=== PATIENT | male | born 1995 | race Caucasian/White ===

== ENCOUNTER 2016-08-28 01:20 | Emergency (ER) | payer BC, OTHER ==
[~2016-08-28] VITALS: Ht 172.7 cm; Wt 69.4 kg
[~2016-08-28 01:20] MED LIST: ABILIFY10 MG PO; ALBUTEROL17 GM IH; AMBIEN10 MG PO; ATIVAN0.5 M1 PO; DOXYCYCLINE HY100 M3 PO; FLUOXETINE HCL20 MG PO; IBUPROFEN400 MG PO; LANTUS 3 M100 UNITS1 SQ; LANTUS100 UNIT/1 SQ; NICOTINE PATCH1 EAC2 TD; NOVOLOG 10100 UNITS/ SC; NOVOLOG100 UNIT/1 SQ; VENTOLIN HFA18 GM IH; ZOLOFT50 M1 PO
[2016-08-28 01:37] LABS: HEMATOCRIT 46.1 % (38.0-50.0); MCH 31.3 PG (29.0-34.0); MCV 86.8 FL (86-99); MEAN PLAT.VOLUME 9.1 uM^3 (9.0-12.4); PLATELET COUNT 345 K/uL (156-360); RBC DIS.WIDTH-CV 12.1 % (11.8-14.6); RBC DIS.WIDTH-SD 38.4 % (39-53); RED BLOOD COUNT 5.31 M/uL (4.00-5.50)
[2016-08-28 01:39] LABS: POINT-OF-CARE METER ID UU13113778; POINT-OF-CARE USER ID NUTMMM10
[2016-08-28 01:48] LABS: CHLORIDE 102 mEq/L (99-109); POTASSIUM 3.4 mEq/L (3.7-5.4); SODIUM 138 mEq/L (136-147)
[2016-08-28 01:51] LABS: GLUCOSE 230 mg/dL (70-99)
[2016-08-28 01:52] LABS: ANION GAP 13 MEQ/L (2-14); TOTAL BILIRUBIN 0.8 mg/dL (0.0-1.0)
[2016-08-28 01:54] LABS: ALKALINE PHOSPHATASE 94 IU/L (3-129); GFR ESTIMATE (CALCULATED) > 59 mL/min/
[2016-08-28 01:55] LABS: UREA NITROGEN (BUN) 24 mg/dL (9-23)
[2016-08-28 02:26] LABS: CARBON DIOXIDE (BICARBONATE) 26.2 MEQ/L (20-31)
[2016-08-28 02:27] LABS: LIPASE 12 U/L (1.0-51.0)
[2016-08-28 04:51] LABS: POINT-OF-CARE METER ID UU13113702
[2016-08-28 04:55] LABS: ADD MIUA? NO; BILIRUBIN NEGATIVE; BLOOD NEGATIVE; COLOR YELLOW ((YELLOW)); GLUCOSE (STRIP) >=500; KETONES 20; LEUKOCYTES NEGATIVE; NITRITE NEGATIVE; PROTEIN (STRIP) NEGATIVE; SPECIFIC GRAVITY 1.021 (1.000-1.030); UCUL ADDED? NO; UROBILINOGEN 0.2 MG/DL (0.2-1.0)
[2016-08-28] MEDS ORDERED: ZOFRAN8 MG PO (05:20)
[2016-08-28 05:39] VITALS: BP 108/60
== END 2016-08-28 05:58 | disposition home or self-care (01) ==
LOC: EME 01:20
PROVIDERS: Emergency Medicine
DX: E11.65 Type 2 diabetes mellitus with hyperglycemia (principal); R10.9 Unspecified abdominal pain; R11.2 Nausea with vomiting, unspecified; Z79.4 Long term (current) use of insulin; F17.200 Nicotine dependence, unspecified, uncomplicated
CPT/HCPCS: 80053; 81003; 82803; 82948; 83690; 84100; 85027; 99281; 99284; J7030

== ENCOUNTER 2017-06-07 20:03 | Emergency (ER) | payer BC, OTHER ==
[~2017-06-07] VITALS: Ht 172.7 cm; Wt 70.0 kg
[~2017-06-07 20:03] MED LIST changes: +ZOFRAN8 MG PO
[2017-06-07 22:35] VITALS: BP 140/79
== END 2017-06-07 22:35 | disposition home or self-care (01) ==
LOC: EME 20:03
DX: S61.213A Laceration without foreign body of left middle finger without damage to nail, initial encounter (principal); W26.0XXA Contact with knife, initial encounter; Y99.0 Civilian activity done for income or pay; Z23 Encounter for immunization; E11.9 Type 2 diabetes mellitus without complications; Z79.4 Long term (current) use of insulin; F17.200 Nicotine dependence, unspecified, uncomplicated
CPT/HCPCS: 99281; 99283

== ENCOUNTER 2017-06-13 05:41 | Emergency (ER) | payer BC, OTHER ==
[~2017-06-13] VITALS: Ht 167.6 cm; Wt 71.4 kg
== END 2017-06-13 10:35 | disposition home or self-care (01) ==
LOC: EME 05:41
DX: M79.645 Pain in left finger(s) (principal); S61.213D Laceration without foreign body of left middle finger without damage to nail, subsequent encounter; W45.8XXD Other foreign body or object entering through skin, subsequent encounter; F17.210 Nicotine dependence, cigarettes, uncomplicated
CPT/HCPCS: 73140; 99281; 99285

== ENCOUNTER 2017-06-17 19:27 | Emergency (ER) | payer BC, OTHER ==
[~2017-06-17] VITALS: Ht 167.6 cm; Wt 68.8 kg
[2017-06-17] MEDS ORDERED: CLEOCIN300 MG PO (21:03)
[2017-06-17 21:16] VITALS: BP 152/98
== END 2017-06-17 21:18 | disposition home or self-care (01) ==
LOC: EME 19:27
DX: T81.33XA Disruption of traumatic injury wound repair, initial encounter (principal); L08.89 Other specified local infections of the skin and subcutaneous tissue; B95.61 Methicillin susceptible Staphylococcus aureus infection as the cause of diseases classified elsewhere; E11.9 Type 2 diabetes mellitus without complications; F17.210 Nicotine dependence, cigarettes, uncomplicated; Z79.4 Long term (current) use of insulin
CPT/HCPCS: 87070; 87075; 87077; 87147; 87186; 87205; 99281; 99284

== ENCOUNTER 2017-07-10 09:02 | Inpatient (IN) | payer BC, OTHER ==
[2017-07-10] VITALS (10 sets, daily range): BP systolic 102–136; BP diastolic 53–94
[~2017-07-10] VITALS: Ht 175.3 cm; Wt 71.2 kg
[~2017-07-10 09:02] MED LIST changes: +CLEOCIN300 MG PO
[2017-07-10] MEDS ORDERED: LEVEMIR FL100 UNIT/1 SC (09:24)
[2017-07-10 09:46] LABS: HEMATOCRIT 44.3 % (38.0-50.0); HEMOGLOBIN 15.3 G/DL (12.5-16.6); MCH 31.4 PG (29.0-34.0); MCHC 34.5 G/DL (30.0-36.0); PLATELET COUNT 282 K/uL (156-360); RBC DIS.WIDTH-CV 11.8 % (11.8-14.6); RBC DIS.WIDTH-SD 39.2 % (39-53); RED BLOOD COUNT 4.87 M/uL (4.00-5.50); WHITE BLOOD COUNT 8.7 K/uL (4.1-10.2)
[2017-07-10 09:50] LABS: APPEARANCE CLEAR ((CLEAR)); BILIRUBIN NEGATIVE; BLOOD NEGATIVE; COLOR STRAW ((YELLOW)); GLUCOSE (STRIP) >=500; KETONES 80; LEUKOCYTES NEGATIVE; NITRITE NEGATIVE; PROTEIN (STRIP) NEGATIVE; SPECIFIC GRAVITY 1.036 (1.000-1.030); UCUL ADDED? NO; UROBILINOGEN 0.2 MG/DL (0.2-1.0)
[2017-07-10 09:56] LABS: ALBUMIN 4.2 g/dL (3.2-4.8); CHLORIDE 97 mEq/L (99-109); POTASSIUM 4.3 mEq/L (3.7-5.4); SODIUM 130 mEq/L (136-147)
[2017-07-10 09:58] LABS: AMPHETAMINE NEGATIVE (500 ng/mL); BARBITURATES NEGATIVE (200 ng/mL); BENZODIAZEPINES NEGATIVE (150 ng/mL); BUPRENORPHINE NEGATIVE (10 ng/mL); COCAINE PRESUMPTIVE POSITIVE (150 ng/mL); METHADONE NEGATIVE (200 ng/mL); METHAMPHETAMINE NEGATIVE (500 ng/mL); OPIATES (MORPHINE) NEGATIVE (100 ng/mL); OXYCODONE NEGATIVE (100 ng/mL); PHENCYCLIDINE NEGATIVE (25 ng/mL); PROPOXYPHENE NEGATIVE (300 ng/mL); THC CANNABINOIDS PRESUMPTIVE POSITIVE (50 ng/mL); TRICYCLIC ANTIDEPRESSANTS NEGATIVE (300 ng/mL)
[2017-07-10 09:59] LABS: TOTAL PROTEIN 7.2 g/dL (6.4-8.3)
[2017-07-10 10:00] LABS: GLUCOSE 563 mg/dL (70-99); TOTAL BILIRUBIN 0.8 mg/dL (0.0-1.0)
[2017-07-10 10:01] LABS: SERUM ETHYL ALCOHOL < 10 mg/dL
[2017-07-10 10:02] LABS: ALKALINE PHOSPHATASE 61 IU/L (3-129); CREATININE 1.3 mg/dL (0.6-1.3); GFR ESTIMATE (CALCULATED) > 59 mL/min/ (58.99-99999)
[2017-07-10 10:03] LABS: UREA NITROGEN (BUN) 25 mg/dL (9-23)
[2017-07-10 10:04] LABS: AST (GOT) 14 IU/L (2-34)
[2017-07-10 10:05] LABS: ALT (GPT) 20 IU/L (3-49)
[2017-07-10 10:58] LABS: Estimated Average Glucose 286 mg/dL (70-123); HEMOGLOBIN A1c (GLYCOHEMOGLOB) 11.6 % HGB (Below 5.7)
[2017-07-10 11:02] LABS: BASE EXCESS -5.4 mEq/L (-3 to +3); CARBOXY HGB 3.9 % (0-5); COMMENTS - BLOOD GASES A+C+; FI02 0.21 %; METHEMOGLOBIN 0.8 % (0-1.5); PCO2 38 mm Hg (35-45); PO2 96 mm Hg (80-100); SITE RR; TOTAL RESP RATE 14 resp/min; pH 7.33 (7.35-7.45)
[2017-07-10 16:14] LABS: CHLORIDE 109 MEQ/L (99-109); POTASSIUM 3.7 MEQ/L (3.7-5.4)
[2017-07-10 16:19] LABS: PHOSPHORUS 2.9 mg/dL (2.5-4.9); UREA NITROGEN (BUN) 20 mg/dL (9-23)
[2017-07-10 16:25] LABS: CREATININE 0.8 MG/DL (0.6-1.3); GFR ESTIMATE (CALCULATED) > 59 mL/min/ (58.99-99999); GLUCOSE 167 mg/dL (70-99); SODIUM 138 MEQ/L (136-147)
[2017-07-10 20:26] LABS: CHLORIDE 106 MEQ/L (99-109); POTASSIUM 4.1 MEQ/L (3.7-5.4); SODIUM 138 MEQ/L (136-147)
[2017-07-10 20:32] LABS: CREATININE 1.1 MG/DL (0.6-1.3); GFR ESTIMATE (CALCULATED) > 59 mL/min/ (58.99-99999); GLUCOSE 178 mg/dL (70-99); PHOSPHORUS 3.2 mg/dL (2.5-4.9); UREA NITROGEN (BUN) 19 mg/dL (9-23)
[2017-07-11] VITALS (10 sets, daily range): BP systolic 112–150; BP diastolic 58–88
[2017-07-11 00:36] LABS: CHLORIDE 106 mEq/L (99-109); POTASSIUM 3.6 mEq/L (3.7-5.4); SODIUM 136 mEq/L (136-147)
[2017-07-11 00:38] LABS: GLUCOSE 199 mg/dL (70-99)
[2017-07-11 00:42] LABS: GFR ESTIMATE (CALCULATED) > 59 mL/min/ (58.99-99999); PHOSPHORUS 2.4 mg/dL (2.5-4.9)
[2017-07-11 00:43] LABS: UREA NITROGEN (BUN) 21 mg/dL (9-23)
[2017-07-11 05:31] LABS: CHLORIDE 107 mEq/L (99-109); POTASSIUM 3.7 mEq/L (3.7-5.4); SODIUM 140 mEq/L (136-147)
[2017-07-11 05:37] LABS: CREATININE 0.8 mg/dL (0.6-1.3); GFR ESTIMATE (CALCULATED) > 59 mL/min/ (58.99-99999)
[2017-07-11 05:38] LABS: UREA NITROGEN (BUN) 21 mg/dL (9-23)
[2017-07-11 05:41] LABS: GLUCOSE 72 mg/dL (70-99); PHOSPHORUS 3.7 mg/dL (2.5-4.9)
[2017-07-11 08:26] LABS: CHLORIDE 110 MEQ/L (99-109); POTASSIUM 3.9 MEQ/L (3.7-5.4); SODIUM 141 MEQ/L (136-147)
[2017-07-11 08:32] LABS: CREATININE 0.8 MG/DL (0.6-1.3); GFR ESTIMATE (CALCULATED) > 59 mL/min/ (58.99-99999); GLUCOSE 81 mg/dL (70-99); UREA NITROGEN (BUN) 22 mg/dL (9-23)
[2017-07-11 08:38] LABS: PHOSPHORUS 4.4 mg/dL (2.5-4.9)
[2017-07-11] MEDS ORDERED: ESCITALOPRAM OX10 MG PO (15:33)
== END 2017-07-11 15:54 | disposition home or self-care (01) | DRG 639 ==
LOC: EME 09:02 → 4WEST 12:25 → EDOF 12:25 → ENRESERV 12:30 → EDOF 12:36 → ENRESERV 12:52 → 4WEST 13:27 → ENRESERV 07-11 06:39 → 4WEST 07-11 15:54
PROVIDERS: Emergency Medicine; Internal Medicine Critical Care Medicine
DX: E10.10 Type 1 diabetes mellitus with ketoacidosis without coma (principal); F34.1 Dysthymic disorder; F14.10 Cocaine abuse, uncomplicated; F12.90 Cannabis use, unspecified, uncomplicated; S51.812A Laceration without foreign body of left forearm, initial encounter; S61.512A Laceration without foreign body of left wrist, initial encounter; X78.9XXA Intentional self-harm by unspecified sharp object, initial encounter; F90.9 Attention-deficit hyperactivity disorder, unspecified type; F41.8 Other specified anxiety disorders; F17.210 Nicotine dependence, cigarettes, uncomplicated; J45.909 Unspecified asthma, uncomplicated; Z91.19 Patient's noncompliance with other medical treatment and regimen; Z91.5 Personal history of self-harm; Z83.3 Family history of diabetes mellitus; Z81.8 Family history of other mental and behavioral disorders; Z79.899 Other long term (current) drug therapy; Z79.4 Long term (current) use of insulin
CPT/HCPCS: 36600; 80048; 80048 91; 80053; 81003; 82010; 82803; 82948; 83036; 84100; 84999; 85027; 87641; 99281; 99285; G0480; J1650; J1815; J7030; J7050

== ENCOUNTER 2017-09-09 22:31 | Emergency (ER) | payer BC, OTHER ==
[~2017-09-09] VITALS: Ht 167.6 cm; Wt 72.6 kg
[~2017-09-09 22:31] MED LIST changes: +ESCITALOPRAM OX10 MG PO; +LEVEMIR FL100 UNIT/1 SC
[2017-09-10 00:14] VITALS: BP 126/74
== END 2017-09-10 00:15 | disposition home or self-care (01) ==
LOC: EME 22:31
PROC: 0JQH0ZZ Repair Left Lower Arm Subcutaneous Tissue and Fascia, Open Approach (ICD-10-PCS; principal; 2017-09-10)
DX: S51.812A Laceration without foreign body of left forearm, initial encounter (principal); W01.119A Fall on same level from slipping, tripping and stumbling with subsequent striking against unspecified sharp object, initial encounter
CPT/HCPCS: 99281; 99284

== ENCOUNTER 2017-12-05 08:20 | Emergency (ER) | payer BC, OTHER ==
[~2017-12-05] VITALS: Ht 172.7 cm; Wt 71.1 kg
[2017-12-05 08:53] LABS: CARBON DIOXIDE (BICARBONATE) 21.8 MEQ/L (20-31)
[2017-12-05 09:02] LABS: BASOPHIL (%) 0.7 % (0-1); BASOPHIL COUNT 0.1 K/uL (0-0.1); EOSINOPHIL (%) 3.7 % (0-5); EOSINOPHIL COUNT 0.3 K/uL (0-0.3); HEMATOCRIT 48.6 % (38.0-50.0); IMMATURE GRANULOCYTE (%) 0.2 % (0.0-0.7); LYMPHOCYTE (%) 28.6 % (15-42); LYMPHOCYTE COUNT 2.6 K/uL (1.0-2.8); MCV 91.4 FL (86-99); MONOCYTE (%) 7.1 % (3-12); MONOCYTE COUNT 0.6 K/uL (0-0.8); NEUTROPHIL (%) 59.7 % (45-76); NEUTROPHIL COUNT 5.3 K/uL (1.8-6.4); PLATELET COUNT 303 K/uL (156-360); RBC DIS.WIDTH-CV 11.7 % (11.8-14.6); RBC DIS.WIDTH-SD 39.7 % (39-53); RED BLOOD COUNT 5.32 M/uL (4.00-5.50); WHITE BLOOD COUNT 8.9 K/uL (4.1-10.2)
[2017-12-05 09:05] LABS: CHLORIDE 99 mEq/L (99-109); POTASSIUM 4.5 mEq/L (3.7-5.4); SODIUM 133 mEq/L (136-147)
[2017-12-05 09:10] LABS: GLUCOSE 528 mg/dL (70-99)
[2017-12-05 09:11] LABS: CREATININE 1.2 mg/dL (0.6-1.3); GFR ESTIMATE (CALCULATED) > 59 mL/min/ (58.99-99999)
[2017-12-05 09:12] LABS: UREA NITROGEN (BUN) 18 mg/dL (9-23)
[2017-12-05 09:45] LABS: APPEARANCE CLEAR ((CLEAR)); BILIRUBIN NEGATIVE; BLOOD NEGATIVE; COLOR STRAW ((YELLOW)); GLUCOSE (STRIP) >=500; KETONES 5; LEUKOCYTES NEGATIVE; NITRITE NEGATIVE; PROTEIN (STRIP) NEGATIVE; SPECIFIC GRAVITY 1.033 (1.000-1.030); UROBILINOGEN 0.2 MG/DL (0.2-1.0)
[2017-12-05 12:14] VITALS: BP 118/74
== END 2017-12-05 12:15 | disposition home or self-care (01) ==
LOC: EME 08:20
PROVIDERS: Emergency Medicine
DX: E10.65 Type 1 diabetes mellitus with hyperglycemia (principal); Z79.4 Long term (current) use of insulin; J45.909 Unspecified asthma, uncomplicated; F17.200 Nicotine dependence, unspecified, uncomplicated
CPT/HCPCS: 80048; 81003; 82010; 82803; 82948; 85025; 99281; 99285; J1885; J2405; J7030

== ENCOUNTER 2018-02-22 16:30 | Emergency (ER) | payer OTHER ==
[~2018-02-22] VITALS: Ht 172.7 cm; Wt 69.2 kg
[2018-02-22 17:48] LABS: APPEARANCE CLEAR ((CLEAR)); BILIRUBIN NEGATIVE; BLOOD SMALL; COLOR COLORLESS ((YELLOW)); GLUCOSE (STRIP) >=500; KETONES 20; LEUKOCYTES NEGATIVE; NITRITE NEGATIVE; PROTEIN (STRIP) NEGATIVE; SPECIFIC GRAVITY 1.024 (1.000-1.030); UROBILINOGEN 0.2 MG/DL (0.2-1.0)
[2018-02-22 17:59] LABS: HEMATOCRIT 47.7 % (38.0-50.0); HEMOGLOBIN 16.5 G/DL (12.5-16.6); MCH 31.7 PG (29.0-34.0); MCHC 34.6 G/DL (30.0-36.0); MCV 91.6 FL (86-99); PLATELET COUNT 300 K/uL (156-360); RBC DIS.WIDTH-SD 40.5 % (39-53); RED BLOOD COUNT 5.21 M/uL (4.00-5.50); WHITE BLOOD COUNT 7.2 K/uL (4.1-10.2)
[2018-02-22 18:12] LABS: ALBUMIN 4.4 g/dL (3.2-4.8); CHLORIDE 95 mEq/L (99-109); POTASSIUM 4.9 mEq/L (3.7-5.4); SODIUM 130 mEq/L (136-147)
[2018-02-22 18:14] LABS: TOTAL PROTEIN 7.5 g/dL (6.4-8.3)
[2018-02-22 18:16] LABS: TOTAL BILIRUBIN 0.8 mg/dL (0.0-1.0)
[2018-02-22 18:18] LABS: ALKALINE PHOSPHATASE 88 IU/L (3-129); CREATININE 1.4 mg/dL (0.6-1.3); GFR ESTIMATE (CALCULATED) > 59 mL/min/ (58.99-99999)
[2018-02-22 18:19] LABS: UREA NITROGEN (BUN) 22 mg/dL (9-23)
[2018-02-22 18:20] LABS: AST (GOT) 15 IU/L (2-34)
[2018-02-22 18:21] LABS: ALT (GPT) 20 IU/L (3-49)
[2018-02-22 18:24] LABS: BACTERIA NONE SEEN /HPF; EPITHELIAL CELLS NONE SEEN /HPF; MUCUS NONE SEEN /LPF; RED BLOOD CELLS 0-5 /HPF (0-5); UCUL ADDED? NO; WHITE BLOOD CELLS 0-5 /HPF (0-5)
[2018-02-22 18:28] LABS: GLUCOSE 576 mg/dL (70-99)
[2018-02-22 18:59] LABS: CARBON DIOXIDE (BICARBONATE) 20.1 MEQ/L (20-31)
[2018-02-22 21:37] VITALS: BP 143/77
== END 2018-02-22 21:39 | disposition home or self-care (01) ==
LOC: EME 16:30
PROVIDERS: Emergency Medicine
DX: E10.65 Type 1 diabetes mellitus with hyperglycemia (principal); Z79.4 Long term (current) use of insulin; J45.909 Unspecified asthma, uncomplicated; F90.9 Attention-deficit hyperactivity disorder, unspecified type; F17.200 Nicotine dependence, unspecified, uncomplicated; Z87.19 Personal history of other diseases of the digestive system
CPT/HCPCS: 71046; 80053; 81003; 82010; 82803; 82948; 85027; 99281; 99285; J2060; J3010; J7030